=== PATIENT | female | born 1970 | race Asian ===

== ENCOUNTER → 2023-09-15 | Day surgery (SDC) | payer OTHER ==
[2023-09-10 14:09] VITALS: BMI 23.6
[~2023-09-15] MED LIST: LACTATED RINGERS 1,000 ML IV SCH; LIDOCAINE 1% (10MG/ML) FOR IV START INTRADERMA PRN; PROPOFOL 10 MG/ML 20 ML VIAL IV ONE
[2023-09-15] MEDS: LACTATED RINGERS 1,000 ML IV ONE ×2 (10:00→10:25)
[2023-09-15 10:13] VITALS: TEMP 98.6
--- NOTE | 2023-09-15 11:15 | P.PCN ---
Date of Procedure: 09/15/23 Procedure(s) Performed: BRIEF HISTORY: Patient is a 53-year-old pleasant female scheduled for an elective colonoscopy as a part of screening for colon cancer. PROCEDURE PERFORMED: Colonoscopy. PREOPERATIVE DIAGNOSIS: Screening for colon cancer. IV sedation per Anesthesia. PROCEDURE: After informed consent was obtained, the patient, was brought into the endoscopy unit. IV sedation was administered by Anesthesia under continuous monitoring. Digital rectal examination was normal. Initially the Olympus CF-160 flexible video colonoscope was then inserted in the rectum, gradually advanced into the cecum moderate fficulty. Careful examination was performed as the scope was gradually being withdrawn. Ileocecal valve and the appendiceal orifice were visualized and appeared normal. Prep was poor and several areas of the colon.. Mucosa of the cecum, ascending colon, transverse colon, descending colon, sigmoid colon, and rectum appeared normal. Retroflexion was performed in the rectum and no lesions were seen. The patient tolerated the procedure well. IMPRESSION: Normal-appearing colon from rectum to cecum with no evidence of colorectal neoplasia . Poor prep in several areas of the colon RECOMMENDATIONS: Findings of this examination were discussed with the patient well as her family. She was advised to have a repeat colonoscopy in 5 years because of the poor prep..
[2023-09-15 11:44] VITALS: BP 112/74; PULSE 54; RESP 16
== END ==
LOC: ORWHC2ENDO 08:41
PROVIDERS: ATTEND Internal Medicine Gastroenterology
DX: Z12.11 Encounter for screening for malignant neoplasm of colon (principal)
CPT/HCPCS: 81025; 45378; J2704